=== PATIENT | male | born 1975 | race Caucasian/White ===

== ENCOUNTER 2022-03-27 14:01 | Emergency (ER) | payer BC, SELFPAY ==
--- NOTE | 2022-03-27 14:02 | ED.MALEGU ---
HPI - Male Genitourinary General Chief complaint: Urogenital-Male Stated complaint: Urinary Problem Time Seen by Provider: 03/27/22 14:02 Source: patient Mode of arrival: ambulatory Limitations: no limitations History of Present Illness HPI Narrative: Misa is a 46-year-old male patient presenting to the clinic today with complaints of burning with urination x3 weeks. He reports he has not had any fever or chills. States that towards the end of his stream he has pain. He denies any foul odor or discharge from his penis. He denies any blood in his semen. He has not been sexually active for several months. He is concerned that he has had the symptoms for 3 weeks and thinks he may have a urinary tract infection. He denies any testicle pain lesions on his penis. He declines any STI testing today-is like his urine tested for infection Related Data Allergies Allergy/AdvReac Type Severity Reaction Status Date / Time No Known Allergies Allergy Verified 03/27/22 14:14 Review of Systems Review of Systems: Pertinent positives per HPI. Patient denies any fever, chills, rash, headache, visual changes, dizziness, cough, runny nose, sore throat, shortness of breath, chest pain, palpitations, nausea, vomiting, diarrhea, constipation, abdominal pain. PMFSH Comments At the time of my signature, I reviewed and agree with the nursing past medical, surgical, social, and family history. There is no relevant family history pertinent to the patient complaint. Exam Narrative: General: Well-developed, well nourished, in no apparent distress. Head: Normocephalic, atraumatic. Cardio: Regular rate and rhythm, s1 and s2 normal, no murmur appreciated. Resp: Clear to auscultation bilaterally, no rhonchi, rales, wheezing or rubs. Abdomen: Soft, pliable, bowel sounds present in all quadrants, non-tender to palpation, no organomegly, no CVAT tenderness. : Deferred-denies any pain to the penis, lesions, discharge, redness, or swelling Course Course Emergency Course: Portions of this record may have been created with voice recognition software. Level of Care: Express Care Visit Vital Signs Vital signs: Vital signs reviewed MDM - Male Genitourinary MDM Narrative Medical decision making narrative: At the time of visit patient is resting comfortably on the exam table. UA was obtained and was negative for any signs of infection. Patient is declining any STI testing today in the clinic. Supportive measures were discussed and I will send in a prescription for some Pyridium. Patient reports when he went to the bathroom to void today he did not have pain afterwards as he has been and states that symptoms have been improving however since they have been going on for 3 weeks he wanted to be checked. Patient discharged with instructions and voiced understand Differential Diagnosis Differential diagnosis: Likely urinary tract infection, urethritis, epididymitis, genital herpes simplex, prostatitis, acute retention of urine and other (Sexually transmitted infection) Discharge Plan Discharge Clinical Impression: Dysuria Patient Disposition: Home, Self-Care Condition: Stable Instructions: Dysuria (ED) Additional Instructions: UA negative for any signs of infection Increase fluids and stay well-hydrated Tylenol/Motrin as needed for pain Pyridium as prescribed Follow-up with your PCP in 3 to 5 days if symptoms persist or sooner if they worsen Prescriptions: New phenazopyridine [Pyridium] 200 mg tablet 200 mg PO TID PRN (Reason: pain) Qty: 6 0RF Follow-up/Referrals: UNKNOWN,DOCTOR [Non-Staff] - Time of Disposition: 14:50 Quality NIHSS Nursing Documentation ED NIHSS nursing documentation: reviewed/agree
[2022-03-27 14:08] VITALS: BP 129/76; PULSE 84; RESP 20; TEMP 36.8; O2SAT 100
== END 2022-03-27 14:53 | disposition home or self-care (01) ==
PROVIDERS: Emergency Provider Nurse Practitioner Family
DX: R30.0 Dysuria (principal)
CPT/HCPCS: 81003; 99203; G0463